=== PATIENT | female | born 1960 | race Caucasian/White ===

== ENCOUNTER 2016-11-21 15:28 | Emergency (ER) | payer BC, OTHER ==
--- NOTE | 2016-11-21 17:27 | UC ---
Minor Trauma HPI - HPI Summary HPI Summary: 56 female presents to with complaints of left sided rib /chest wall pain that occurred after leaning over the arm of her chair while at work on Saturday. Patient states she heard/felt a pop. She has tried to take ibuprofen and rest without relief. With twisting she states she feels clicking. Denies bruising, obvious deformity, and redness. States pain also worsens when taking deep breaths and coughing. Did have a cold last week however has been improving with lingering cough. No fever, chest pain or difficulty breathing. No other complaints at this time. No PMHx. - History of Current Complaint Chief Complaint: UCTrauma Stated Complaint: LEFT SIDE INJURY Time Seen by Provider: 11/21/16 17:11 Hx Obtained From: Patient Onset/Duration: Sudden Onset, Lasting Days, Still Present Severity Initially: Moderate Severity Currently: Moderate Pain Intensity: 4 Pain Scale Used: 0-10 Numeric Mechanism Of Injury: Twisted - and leaned over side of arm of chair Aggravating Factor(s): Coughing, Deep Breaths, Movement Alleviating Factor(s): Nothing, Rest - Allergies/Home Medications Allergies/Adverse Reactions: Allergies Allergy/AdvReac Type Severity Reaction Status Date / Time Amoxicillin Allergy Rash Verified 11/21/16 16:31 PMH/Surg Hx/FS Hx/Imm Hx - Additional Past Medical History Additional PMH: Denies DM HTN and any PMHx. - Surgical History Surgical History: Yes Surgery Procedure, Year, and Place: ectopic - Family History Known Family History: Positive: None - Social History Alcohol Use: None Substance Use Type: None Smoking Status (MU): Never Smoked Tobacco Review of Systems Constitutional: Negative Respiratory: Negative Cardiovascular: Negative Genitourinary: Negative Motor: Negative Musculoskeletal: Arthralgia, Myalgia - left sided rib area All Other Systems Reviewed And Are Negative: Yes Physical Exam Triage Information Reviewed: Yes Appearance: Well-Appearing, Well-Nourished, Pain Distress - mild with movement and twisting Vital Signs: Initial Vital Signs Temp 99.1 F 11/21/16 16:26 Pulse 89 11/21/16 16:26 Resp 16 11/21/16 16:26 BP 137/80 11/21/16 16:26 Pulse Ox 97 11/21/16 16:26 Eyes: Positive: Conjunctiva Clear ENT: Positive: Hearing grossly normal Neck: Positive: Supple, Nontender Respiratory: Positive: Chest non-tender, Lungs clear, Normal breath sounds, No respiratory distress, No accessory muscle use. Negative: Respiratory distress, Decreased breath sounds, Rhonchi, Wheezing Cardiovascular: Positive: RRR, No Murmur, Pulses Normal, Brisk Capillary Refill Abdomen Description: Positive: Nontender, Soft Bowel Sounds: Positive: Present Musculoskeletal: Positive: Strength Intact, ROM Intact, No Edema Neurological: Positive: Alert, Muscle Tone Normal, Other: - sensation intact, no pain on palpation Skin Exam: Normal Skin: Positive: Other - no ecchymosis, edema, obvious deformity, crepitus or step off Diagnostics - Radiology left rib/chest Xray Interpretation: No Acute Changes - An external marker is noted overlying the patient's left flank No fracture or significant focal osseous abnormality is seen. No pneumothorax is apparent. Limited views demonstrate grossly clear lungs. Radiology Interpretation Completed By: Radiologist Minor Trauma Course/Dx - Course Course Of Treatment: left rib/chest x-ray obtained and negative. educated and appears to be costochondritis. will treat symptomatically. NSAIDs and RICE. Follow up with PCP. Aware of worsening signs and symptoms to watch out for. No concerned for cardiac or respiratory etiology. - Differential Dx/Diagnosis Differential Diagnosis/HQI/PQRI: Contusion(s), Fracture, Sprain, Strain, Other - costochondritis Provider Diagnoses: costochondritis, muscle strain Discharge - Discharge Plan Condition: Stable Disposition: HOME Prescriptions: Cyclobenzaprine TAB* [Flexeril 10 MG TAB*] 10 mg PO BEDTIME #10 tab Patient Education Materials: Costochondritis (ED) Referrals: Bin Cassidy MD [Primary Care Provider] - Additional Instructions: Take prescribed medication as directed. continue Aleve for pain and inflammation. Heating pad. Extra pillow for cushion. Rest, however make sure you are continuing to take deep breaths as usual. Follow up with PCP. If symptoms worsen or do not improve please seek medical attention immediately.
[2016-11-21 18:15] VITALS: BP 134/71
--- NOTE | 2016-11-21 18:35 | RAD ---
INDICATION: Left rib pain COMPARISON: None. TECHNIQUE: 4 views of the left ribs were obtained. FINDINGS: An external marker is noted overlying the patient's left flank No fracture or significant focal osseous abnormality is seen. No pneumothorax is apparent. Limited views demonstrate grossly clear lungs. IMPRESSION: No radiographically apparent displaced rib fracture or pneumothorax. If the patient's symptoms persist, follow-up imaging is recommended.
== END 2016-11-21 18:44 | disposition home or self-care (01) ==
LOC: UCCORT 15:28
DX: M94.0 Chondrocostal junction syndrome [Tietze] (principal); S29.011A Strain of muscle and tendon of front wall of thorax, initial encounter; X50.1XXA Overexertion from prolonged static or awkward postures, initial encounter; Y93.9 Activity, unspecified; Y92.89 Other specified places as the place of occurrence of the external cause; Y99.0 Civilian activity done for income or pay; Z88.1 Allergy status to other antibiotic agents
CPT/HCPCS: 99212; G0463

== ENCOUNTER 2019-01-31 08:03 | Emergency (ER) | payer BC ==
--- NOTE | 2019-01-31 08:36 | UC ---
Ear Complaint HPI - HPI Summary HPI Summary: Per hourly associate: "Right ear plugged feeling with intermittent pain since . Had some mild cold symptoms prior. " -here w/ her . has used sudafed and DENA w/o relief. no nasal spray. no sinu reyes. cold sx resolved. sx x 1 wk but more plugged 2 d ago. no pain. - History of Current Complaint Chief Complaint: UCEar Stated Complaint: RIGHT EAR COMPLAINT Time Seen by Provider: 01/31/19 08:08 Pain Intensity: 0 - Allergies/Home Medications Allergies/Adverse Reactions: Allergies Allergy/AdvReac Type Severity Reaction Status Date / Time amoxicillin Allergy Rash Verified 01/31/19 08:19 PMH/Surg Hx/FS Hx/Imm Hx Previously Healthy: Yes - Surgical History Surgical History: Yes Surgery Procedure, Year, and Place: ectopic . tubes tied - Family History Known Family History: Positive: None - Social History Alcohol Use: None Substance Use Type: None Smoking Status (MU): Never Smoked Tobacco Review of Systems All Other Systems Reviewed And Are Negative: Yes Constitutional: Positive: Negative. Negative: Fever Skin: Positive: Negative Eyes: Positive: Negative ENT: Negative: Sore Throat, Ear Ache, Nasal Discharge, Sinus Congestion, Sinus Pain/Tenderness Respiratory: Positive: Negative Cardiovascular: Positive: Negative Gastrointestinal: Positive: Negative. Negative: Vomiting, Diarrhea Genitourinary: Positive: Negative Neurovascular: Positive: Negative Neurological: Positive: Negative Is Patient Immunocompromised?: No Physical Exam Triage Information Reviewed: Yes Appearance: Well-Appearing, No Pain Distress, Well-Nourished Vital Signs: Initial Vital Signs Temp 98.8 F 01/31/19 08:16 Pulse 83 01/31/19 08:16 Resp 16 01/31/19 08:16 BP 153/100 01/31/19 08:16 Pulse Ox 97 01/31/19 08:16 Eye Exam: Normal ENT: Positive: Pharynx normal, Uvula midline, Other - Rt ear - no welling or tenderness w/ maniupuation. canal nml w/ impacted cerumen deep.. Negative: Nasal congestion, Nasal drainage, Sinus tenderness Neck exam: Normal Neck: Positive: Supple, Nontender, No Lymphadenopathy Respiratory Exam: Normal Respiratory: Positive: Lungs clear, Normal breath sounds, No respiratory distress, No accessory muscle use. Negative: Crackles, Rhonchi, Stridor, Wheezing Cardiovascular Exam: Normal Cardiovascular: Positive: RRR Psychological Exam: Normal Skin Exam: Normal Ear Complaint Course/Dx - Course Course Of Treatment: rt ear cerumen impacted. irrigation by staff - still w/ some deep cerumen and startuing to becvome painful. recommend debrox otc x 5 d and f/u for further disimpaction. sh ei s very agreeable w/ plan. - Differential Dx/Diagnosis Differential Diagnosis/HQI/PQRI: Cerumen Impaction, URI Provider Diagnosis: Excessive cerumen in right ear canal Discharge ED - Sign-Out/Discharge Documenting (check all that apply): Patient Departure All imaging exams completed and their final reports reviewed: No Studies - Discharge Plan Condition: Stable Disposition: HOME Patient Education Materials: Cerumen Impaction (ED) Referrals: Bin Cassidy MD [Primary Care Provider] - Additional Instructions: Please make sure to follow up this week with your PCP to check your blood pressure as it is high although slightly better w/ recheck. You should avoid all NSAID meds that include ibuprofen, advil, aleve etc as well as sudafed as these are known for raising blood pressure. Risks of stroke, heart attack and other major complications are potential outcomes. -OTC debrox or orther wax softener should be used nightly x 5 nights. You can follow up here or your PCP for further disimpaction once it becomes softer. - Billing Disposition and Condition Condition: STABLE Disposition: Home
[2019-01-31 08:57] VITALS: BP 149/96
== END 2019-01-31 09:08 | disposition home or self-care (01) ==
LOC: UCCORT 08:03
DX: H61.21 Impacted cerumen, right ear (principal); Z88.0 Allergy status to penicillin
CPT/HCPCS: 99212; G0463